=== PATIENT | male | born 1970 | race American Indian/Alaskan Native ===

== ENCOUNTER 2018-02-28 19:22 | Inpatient (IN) | payer OTHER ==
[2018-02-28 20:24] LABS: Basophils % (Auto) 0.4 % (0.0-1.8); Eosinophils # (Auto) 0.1 K/mm3 (0.0-0.4); Eosinophils % (Auto) 1.1 % (0.0-4.3); Lymphocytes # (Auto) 1.4 K/mm3 (1.2-5.4); Lymphocytes % (Auto) 14.8 % (13.4-35.0); Mean Corpuscular HGB Conc 31 % (32-34); Monocytes # (Auto) 0.8 K/mm3 (0.0-0.8); Monocytes % (Auto) 8.4 % (0.0-7.3); Platelet Count 600 K/mm3 (140-440); Red Blood Count 2.56 M/mm3 (3.65-5.03); Red Cell Distribution Width 18.7 % (13.2-15.2)
[2018-02-28 20:30] LABS: Hemoglobin 5.4 gm/dl (11.8-15.2)
[2018-02-28 20:31] LABS: Hematocrit 17.5 % (35.5-45.6); Mean Corpuscular Hemoglobin 21 pg (28-32); Mean Corpuscular Volume 68 fl (84-94)
[2018-02-28 20:36] LABS: BUN/Creatinine Ratio 16; Blood Urea Nitrogen 14 mg/dL (9-20); Calcium 8.8 mg/dL (8.4-10.2); Hemolysis Index 0
[2018-02-28] MEDS ORDERED: PROTONIX IV ONE (21:19)
[2018-02-28] MEDS ORDERED: NACL 0.9% 500 ML 500 ML IV ONE (21:19)
--- NOTE | 2018-02-28 21:25 | Emergency Department Report ---
ED Shortness of Breath HPI - General Chief Complaint: Dyspnea/Respdistress Stated Complaint: SHORTNESS OF BREATH Time Seen by Provider: 02/28/18 20:55 Source: patient, old records reviewed (no previous record available) Mode of arrival: Ambulatory Limitations: No Limitations - History of Present Illness Initial Comments: 47-year-old male with no past medical history of hypertension and previous appendectomy presents to hospital with complaints of shortness of breath 1 week. Positive dyspnea on exertion, tired and fatigued feeling. Patient also has had intermittent epigastric aching pain that worsens when he is hungry and improves after he eats. He has noticed that his stools have been dark in color. He denies cough, fever, Tenderness, or leg edema. 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 He denies aspirin use, NSAIDs, daily alcohol use, recent weight loss, smoking history, or weight loss. No chest pain reported. Patient went to [place] urgent [facility] prior to arrival and had a chest x-ray performed. Impression as per radiologist was right lower lobe pneumonia and a questionable left perihilar infiltrate. Patient denies any infectious symptoms. - Related Data Home Medications Medication Instructions Recorded Confirmed Last Taken amLODIPine [Norvasc] 10 mg PO DAILY 02/28/18 02/28/18 Unknown hydroCHLOROthiazide 12.5 mg PO DAILY 02/28/18 02/28/18 Unknown [Hydrochlorothiazide] Allergies Allergy/AdvReac Type Severity Reaction Status Date / Time No Known Allergies Allergy Unverified 02/28/18 19:45 ED Review of Systems ROS: Stated complaint: SHORTNESS OF BREATH Other details as noted in HPI Comment: All other systems reviewed and negative ED Past Medical Hx - Past Medical History Hx Hypertension: Yes - Surgical History Past Surgical History?: Yes Hx Appendectomy: Yes - Social History Smoking Status: Never Smoker Substance Use Type: None - Medications Home Medications: Home Medications Medication Instructions Recorded Confirmed Last Taken Type amLODIPine [Norvasc] 10 mg PO DAILY 02/28/18 02/28/18 Unknown History hydroCHLOROthiazide 12.5 mg PO DAILY 02/28/18 02/28/18 Unknown History [Hydrochlorothiazide] ED Physical Exam - General Limitations: No Limitations - Other Other exam information: General: No limitations, patient is alert in no acute distress Head exam: Atraumatic, normocephalic Eyes exam: Normal appearance, pale conjunctiva ENT: Moist mucous membrane, pale tongue Neck exam: Normal inspection, full range of motion, no meningismus nontender Respiratory exam: Crackles at the right base, no tachypnea or wheezing Cardiovascular: Normal rate and rhythm, positive systolic murmur Abdomen: Soft, nondistended, and nontender, with normal bowel sounds, no rebound, or guarding Rectal: Brown stool somewhat rating color guaiac positive Extremity: Full range of motion normal inspection no deformity Back: Normal Inspection, full range of motion, no tenderness Neurologic: Alert, oriented x3, cranial nerves intact, no motor or sensory deficit Psychiatric: normal affect, normal mood Skin: Warm, dry, intact ED Course Vital Signs 02/28/18 02/28/18 02/28/18 19:40 20:51 21:00 Temperature 98.6 F Pulse Rate 89 78 Respiratory 17 21 Rate Blood Pressure 152/74 O2 Sat by Pulse 99 97 100 Oximetry 02/28/18 02/28/18 02/28/18 21:16 21:30 22:00 Temperature Pulse Rate 94 H 80 83 Respiratory 16 28 H Rate Blood Pressure O2 Sat by Pulse 98 100 100 Oximetry 02/28/18 02/28/18 02/28/18 22:16 22:30 22:46 Temperature Pulse Rate 84 82 82 Respiratory 31 H 32 H 28 H Rate Blood Pressure 154/68 150/60 154/68 O2 Sat by Pulse 100 100 98 Oximetry 02/28/18 23:00 Temperature Pulse Rate 79 Respiratory 30 H Rate Blood Pressure 146/62 O2 Sat by Pulse 99 Oximetry - Reevaluation(s) Reevaluation #1: 02/28/18 21:30 Despite patient's x-ray findings suggestive of infiltrate patient does not have any infectious symptoms, leukocytosis, or fever. Blood cultures ordered the CT angiogram also further evaluation of chest to rule out pulmonary infarct or mass - Consultations Consultation #1: 02/28/18 23:08 case d/w GI dr bartlett, will consult ED Medical Decision Making - Lab Data Result diagrams: 02/28/18 20:10 02/28/18 20:10 Lab Results 02/28/18 02/28/18 02/28/18 Range/Units 20:10 20:10 21:26 WBC 9.7 (4.5-11.0) K/mm3 RBC 2.56 L (3.65-5.03) M/mm3 Hgb 5.4 L* (11.8-15.2) gm/dl Hct 17.5 L* (35.5-45.6) % MCV 68 L (84-94) fl MCH 21 L (28-32) pg MCHC 31 L (32-34) % RDW 18.7 H (13.2-15.2) % Plt Count 600 H (140-440) K/mm3 Lymph % (Auto) 14.8 (13.4-35.0) % [place] % (Auto) 8.4 H (0.0-7.3) % Eos % (Auto) 1.1 (0.0-4.3) % Baso % (Auto) 0.4 (0.0-1.8) % Lymph # 1.4 (1.2-5.4) K/mm3 [place] # 0.8 (0.0-0.8) K/mm3 Eos # 0.1 (0.0-0.4) K/mm3 Baso # 0.0 (0.0-0.1) K/mm3 Seg Neutrophils % 75.3 H (40.0-70.0) % Seg Neutrophils # 7.3 (1.8-7.7) K/mm3 PT 15.1 H (12.2-14.9) Sec. INR 1.14 H (0.87-1.13) APTT 31.3 (24.2-36.6) Sec. Sodium 137 (137-145) mmol/L Potassium 4.2 (3.6-5.0) mmol/L Chloride 99.1 (98-107) mmol/L Carbon Dioxide 27 (22-30) mmol/L Anion Gap 15 mmol/L BUN 14 (9-20) mg/dL Creatinine 0.9 (0.8-1.5) mg/dL Estimated GFR > 60 ml/min BUN/Creatinine Ratio 16 % Glucose 150 H (75-100) mg/dL Calcium 8.8 (8.4-10.2) mg/dL Iron (49-181) ug/dL TIBC (250-450) mcg/dL % Saturation % Transferrin (180-329) mg/dl Troponin T < 0.010 (0.00-0.029) ng/mL Blood Type Antibody Screen Crossmatch 02/28/18 02/28/18 Range/Units 21:26 21:33 WBC (4.5-11.0) K/mm3 RBC (3.65-5.03) M/mm3 Hgb (11.8-15.2) gm/dl Hct (35.5-45.6) % MCV (84-94) fl MCH (28-32) pg MCHC (32-34) % RDW (13.2-15.2) % Plt Count (140-440) K/mm3 Lymph % (Auto) (13.4-35.0) % [place] % (Auto) (0.0-7.3) % Eos % (Auto) (0.0-4.3) % Baso % (Auto) (0.0-1.8) % Lymph # (1.2-5.4) K/mm3 [place] # (0.0-0.8) K/mm3 Eos # (0.0-0.4) K/mm3 Baso # (0.0-0.1) K/mm3 Seg Neutrophils % (40.0-70.0) % Seg Neutrophils # (1.8-7.7) K/mm3 PT (12.2-14.9) Sec. INR (0.87-1.13) APTT (24.2-36.6) Sec. Sodium (137-145) mmol/L Potassium (3.6-5.0) mmol/L Chloride (98-107) mmol/L Carbon Dioxide (22-30) mmol/L Anion Gap mmol/L BUN (9-20) mg/dL Creatinine (0.8-1.5) mg/dL Estimated GFR ml/min BUN/Creatinine Ratio % Glucose (75-100) mg/dL Calcium (8.4-10.2) mg/dL Iron 7 L (49-181) ug/dL TIBC 284 (250-450) mcg/dL % Saturation 2.46 % Transferrin 241 (180-329) mg/dl Troponin T (0.00-0.029) ng/mL Blood Type O POSITIVE Antibody Screen Negative Crossmatch See Detail - EKG Data -: EKG Interpreted by Ct EKG shows normal: sinus rhythm, axis (qrs -4), QRS complexes (qrsd 105), ST-T waves (no stemi) Rate: normal (83) - EKG Data When compared to previous EKG there are: previous EKG unavailable - Radiology Data Radiology results: report reviewed FINAL REPORT EXAM: XR CHEST ROUTINE 2V HISTORY: Shortness of breath TECHNIQUE: Frontal and lateral chest x-ray. PRIORS: None. FINDINGS: Cardiac and mediastinal silhouette within normal limits. Lungs show patchy and partially confluent opacities in the right lower lobe. No other focal consolidation, apparent pleural effusion or pneumothorax. Bony thorax grossly unremarkable. IMPRESSION: 1. Right lower lobe atelectasis versus consolidation, which may represent acute inflammatory process. Clinical correlation and radiographic followup after 4-6 weeks advised to document resolution. 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 Multiplanar reformations. PRIORS: Chest x-ray of same date. FINDINGS: Chest: The main and bilateral proximal pulmonary arteries are normally opacified without endoluminal filling defects. Heterogeneous enhancement of peripheral pulmonary arteries limits their evaluation. Borderline cardiomegaly. No apparent aneurysm, pseudoaneurysm or aortic dissection. No significant lymph node enlargement or axillary adenopathy. Lungs show patchy and partially confluent opacities in the right lower lobe, with some air bronchograms. Small and ill-defined, pleuro-parenchymal opacity in the lateral lingula, with slight cavitation, may represent postinflammatory change or scarring. Juxtapleural, nodular density in the posterior aspect of left lower lobe superior segment measuring approximately 5 x 9 mm, nonspecific. No discrete parenchymal mass, pleural effusions or apparent pneumothorax. Calcifications noted in the bilateral kidneys measuring up to 8-9 mm in the right kidney. No significant hydronephrosis. Remainder of visualized upper abdomen grossly unremarkable. Degenerative change in the thoracic spine. IMPRESSION: 1. No evidence of large vessel or central pulmonary emboli. 2. Patchy right lower lobe consolidation, which may represent acute infectious or inflammatory process versus nonspecific postinflammatory change or pneumonitis of uncertain etiology or chronicity. Clinical correlation and followup to resolution suggested. 3. Juxtapleural nodular density in left lower lobe, indeterminate. For lung nodules greater than 8 mm in size, consider CT chest in 3 months, PET/CT or tissue sampling. (Based on Fleischner guidelines.) 4. Nonobstructing, bilateral renal calcifications. No significant hydronephrosis. - Medical Decision Making Dyspnea secondary to symptomatic anemia Patient received IV Protonix given intermittent epigastric pain with guaiac positive stools Also component of iron deficiency 2 units of PRBCs ordered GI consultation Right-sided pulmonary infiltrate Confirmed by CT angiogram without signs of pulmonary embolus Patient does not have infectious symptoms Blood cultures pending Treated with Rocephin and azithromycin Hospitalist Dr. Espinoza mcdonald for admission - Differential Diagnosis pneumonia, anemia, PUD, iron deficiency, cancer, PE Critical Care Time: No Critical care attestation.: If time is entered above; I have spent that time in minutes in the direct care of this critically ill patient, excluding procedure time. ED Disposition Clinical Impression: Symptomatic anemia, Iron deficiency anemia, Guaiac positive stools, Epigastric abdominal pain, Pulmonary infiltrate Disposition: OP ADMIT IP TO THIS HOSP Is pt being admited?: Yes Condition: Stable Time of Disposition: 22:51 (Dr Chino/hospitalist)
--- NOTE | 2018-02-28 21:29 | XRay Report ---
FINAL REPORT EXAM: XR CHEST ROUTINE 2V HISTORY: Shortness of breath TECHNIQUE: Frontal and lateral chest x-ray. PRIORS: None. FINDINGS: Cardiac and mediastinal silhouette within normal limits. Lungs show patchy and partially confluent opacities in the right lower lobe. No other focal consolidation, apparent pleural effusion or pneumothorax. Bony thorax grossly unremarkable. IMPRESSION: 1. Right lower lobe atelectasis versus consolidation, which may represent acute inflammatory process. Clinical correlation and radiographic followup after 4-6 weeks advised to document resolution.
[2018-02-28] MEDS ORDERED: ROCEPHIN/NS 1 GM/50 ML 1 GM/50 ML BAG IV ONE (21:52)
[2018-02-28] MEDS ORDERED: ZITHROMAX 500 MG in NACL 0.9% 250ML 250 ML IV ONE (21:52)
[2018-02-28 21:54] LABS: INR 1.14 (0.87-1.13)
[2018-02-28 21:55] LABS: Partial Thromboplastin Time 31.3 Sec. (24.2-36.6)
[2018-02-28 22:05] LABS: % Iron Saturation 2.46 %
--- NOTE | 2018-02-28 22:42 | Cat Scan Report ---
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 Multiplanar reformations. PRIORS: Chest x-ray of same date. FINDINGS: Chest: The main and bilateral proximal pulmonary arteries are normally opacified without endoluminal filling defects. Heterogeneous enhancement of peripheral pulmonary arteries limits their evaluation. Borderline cardiomegaly. No apparent aneurysm, pseudoaneurysm or aortic dissection. No significant lymph node enlargement or axillary adenopathy. Lungs show patchy and partially confluent opacities in the right lower lobe, with some air bronchograms. Small and ill-defined, pleuro-parenchymal opacity in the lateral lingula, with slight cavitation, may represent postinflammatory change or scarring. Juxtapleural, nodular density in the posterior aspect of left lower lobe superior segment measuring approximately 5 x 9 mm, nonspecific. No discrete parenchymal mass, pleural effusions or apparent pneumothorax. Calcifications noted in the bilateral kidneys measuring up to 8-9 mm in the right kidney. No significant hydronephrosis. Remainder of visualized upper abdomen grossly unremarkable. Degenerative change in the thoracic spine. IMPRESSION: 1. No evidence of large vessel or central pulmonary emboli. 2. Patchy right lower lobe consolidation, which may represent acute infectious or inflammatory process versus nonspecific postinflammatory change or pneumonitis of uncertain etiology or chronicity. Clinical correlation and followup to resolution suggested. 3. Juxtapleural nodular density in left lower lobe, indeterminate. For lung nodules greater than 8 mm in size, consider CT chest in 3 months, PET/CT or tissue sampling. (Based on Fleischner guidelines.) 4. Nonobstructing, bilateral renal calcifications. No significant hydronephrosis.
[2018-02-28] MEDS ORDERED: NACL 0.9% 500 ML 500 ML ONE (23:41)
[2018-02-28] MEDS ORDERED: NACL 0.9% 1000 ML 1,000 ML IV SCH (23:45)
[2018-02-28] MEDS ORDERED: TYLENOL PO PRN (23:59)
[2018-02-28] MEDS ORDERED: SODIUM CHLORIDE FLUSH SYRINGE 10 ML IV PRN (23:59)
[2018-02-28] MEDS ORDERED: MORPHINE IV PRN (23:59)
[2018-02-28] MEDS ORDERED: ZOFRAN IV PRN (23:59)
--- NOTE | 2018-03-01 00:33 | History and Physical Report ---
History of Present Illness Date of examination: 02/28/18 Date of admission: 02/28/18 Chief complaint: Shortness of breath History of present illness: Patient is a 47-year-old -[place] male with history of hypertension who presented to the ED on account of 1 week history of shortness of breath with mild exertion. He has associated generalized weakness, palpitation and dizziness. He also complained of epigastric pain with passage of dark stool. Patient denies chest pain, fever, chills, cough, headaches, leg swelling, orthopnea, PND, nausea, vomiting, syncope or loss of consciousness. No constipation, diarrhea, dysuria or frequency. He denies chronic use of NSAIDS or prior history of presenting complaint. In the ED, his hemoglobin was noted to be very low at 5.4 Past History Past Medical History: hypertension, other (chronic low back pain) Past Surgical History: appendectomy Social history: other (he admits to occasional alcohol use but denies tobacco or illicit drug use) Family history: hypertension Medications and Allergies Allergies Allergy/AdvReac Type Severity Reaction Status Date / Time No Known Allergies Allergy Unverified 02/28/18 19:45 Home Medications Medication Instructions Recorded Confirmed Last Taken Type amLODIPine [Norvasc] 10 mg PO DAILY 02/28/18 02/28/18 Unknown History hydroCHLOROthiazide 12.5 mg PO DAILY 02/28/18 02/28/18 Unknown History [Hydrochlorothiazide] Active Meds: Active Medications Acetaminophen (Tylenol) 650 mg PO Q4H PRN PRN Reason: Pain MILD(1-3)/Fever >100.5/[place] Levofloxacin/Dextrose (Levaquin 750mg/150ml) 750 mg in 150 mls @ 100 mls/hr IV Q24HR HAILY; Protocol Sodium Chloride (Nacl 0.9% 1000 Ml) 1,000 mls @ 100 mls/hr IV DIRECT HAILY Pantoprazole Sodium 80 mg/ (Sodium Chloride) 100 mls @ 10 mls/hr IV DIRECT HAILY Morphine Sulfate (Morphine) 2 mg IV Q4H PRN PRN Reason: Pain, Moderate (4-6) Ondansetron HCl (Zofran) 4 mg IV Q8H PRN PRN Reason: Nausea And Vomiting Sodium Chloride (Sodium Chloride Flush Syringe 10 Ml) 10 ml IV BID HAILY Sodium Chloride (Sodium Chloride Flush Syringe 10 Ml) 10 ml IV PRN PRN PRN Reason: LINE FLUSH Review of Systems All systems: negative (except as documented in the HPI, all other systems were reviewed and negative) Exam - Constitutional Vitals: Temp Pulse Resp BP Pulse Ox 99.7 F H 83 33 H 155/61 98 03/01/18 00:03 03/01/18 00:15 03/01/18 00:15 03/01/18 00:15 03/01/18 00:15 General appearance: Present: no acute distress - EENT Eyes: Present: PERRL, EOM intact ENT: hearing intact, clear oral mucosa - Neck Neck: Present: supple, normal ROM - Respiratory Respiratory effort: normal Respiratory: bilateral: diminished, rales - Cardiovascular Rhythm: regular Heart Sounds: Present: S1 & S2. Absent: rub, click - Extremities Extremities: pulses symmetrical, No edema - Abdominal General gastrointestinal: Present: soft, tender (epigastric), non-distended, normal bowel sounds - Integumentary Integumentary: Present: clear, warm, dry - Musculoskeletal Musculoskeletal: gait normal, strength equal bilaterally - Psychiatric Psychiatric: appropriate mood/affect, intact judgment & insight - Neurologic Neurologic: CNII-XII intact, moves all extremities Results - Labs CBC & Chem 7: 02/28/18 20:10 02/28/18 20:10 Labs: Laboratory Last Values WBC 9.7 K/mm3 (4.5-11.0) 02/28/18 20:10 RBC 2.56 M/mm3 (3.65-5.03) L 02/28/18 20:10 Hgb 5.4 gm/dl (11.8-15.2) L* 02/28/18 20:10 Hct 17.5 % (35.5-45.6) L* 02/28/18 20:10 MCV 68 fl (84-94) L 02/28/18 20:10 MCH 21 pg (28-32) L 02/28/18 20:10 MCHC 31 % (32-34) L 02/28/18 20:10 RDW 18.7 % (13.2-15.2) H 02/28/18 20:10 Plt Count 600 K/mm3 (140-440) H 02/28/18 20:10 Lymph % (Auto) 14.8 % (13.4-35.0) 02/28/18 20:10 [place] % (Auto) 8.4 % (0.0-7.3) H 02/28/18 20:10 Eos % (Auto) 1.1 % (0.0-4.3) 02/28/18 20:10 Baso % (Auto) 0.4 % (0.0-1.8) 02/28/18 20:10 Lymph # 1.4 K/mm3 (1.2-5.4) 02/28/18 20:10 [place] # 0.8 K/mm3 (0.0-0.8) 02/28/18 20:10 Eos # 0.1 K/mm3 (0.0-0.4) 02/28/18 20:10 Baso # 0.0 K/mm3 (0.0-0.1) 02/28/18 20:10 Seg Neutrophils % 75.3 % (40.0-70.0) H 02/28/18 20:10 Seg Neutrophils # 7.3 K/mm3 (1.8-7.7) 02/28/18 20:10 PT 15.1 Sec. (12.2-14.9) H 02/28/18 21:26 INR 1.14 (0.87-1.13) H 02/28/18 21:26 APTT 31.3 Sec. (24.2-36.6) 02/28/18 21:26 Sodium 137 mmol/L (137-145) 02/28/18 20:10 Potassium 4.2 mmol/L (3.6-5.0) 02/28/18 20:10 Chloride 99.1 mmol/L (98-107) 02/28/18 20:10 Carbon Dioxide 27 mmol/L (22-30) 02/28/18 20:10 Anion Gap 15 mmol/L 02/28/18 20:10 BUN 14 mg/dL (9-20) 02/28/18 20:10 Creatinine 0.9 mg/dL (0.8-1.5) 02/28/18 20:10 Estimated GFR > 60 ml/min 02/28/18 20:10 BUN/Creatinine Ratio 16 % 02/28/18 20:10 Glucose 150 mg/dL (75-100) H 02/28/18 20:10 Calcium 8.8 mg/dL (8.4-10.2) 02/28/18 20:10 Iron 7 ug/dL (49-181) L 02/28/18 21:26 TIBC 284 mcg/dL (250-450) 02/28/18 21:26 % Saturation 2.46 % 02/28/18 21:26 Transferrin 241 mg/dl (180-329) 02/28/18 21:26 Troponin T < 0.010 ng/mL (0.00-0.029) 02/28/18 20:10 Blood Type O POSITIVE 02/28/18 21:33 Antibody Screen Negative 02/28/18 21:33 Crossmatch See Detail 02/28/18 21:33 - Imaging and Cardiology Chest x-ray: report reviewed CT scan - chest: report reviewed Assessment and Plan Assessment and plan: Upper GI bleed -will transfuse pt with 2u of PRBCS and monitor post transfusion H&H -Patient will be placed on Protonix drip -GI was consulted in the ED Pneumonia -CTA chest showed patchy right lower lobe consolidation -Patient will be continued on IV antibiotic with levofloxacin -Blood cultures were obtained in the ED, will follow results New left lower lobe lung nodule measuring approximately 59 mm per chest imaging -For outpatient follow-up with chest CT scan in 3 months per recommendation Hypertension, stable -We will resume his home antihypertensives -Patient will also be placed on PRN IV hydralazine Hyperglycemia -We will check hemoglobin A1c level Obesity with BMI of 36 -Weight loss recommended Prophylaxis -DVT prophylaxis with SCD and GI prophylaxis with Protonix Time spent: 35 minutes Disposition: Discharge will depend on clinical course
[2018-03-01] MEDS ORDERED: PROTONIX 80 MG in NACL 0.9% 100 ML IV SCH (01:00)
[2018-03-01 06:39] LABS: Iron 15 ug/dL (49-181)
[2018-03-01 06:40] LABS: Total Iron Binding Capacity 262 mcg/dL (250-450)
--- NOTE | 2018-03-01 07:00 | Progress Note ---
Assessment and Plan Assessment and plan: 47-year-old male with past medical history significant for hypertension, obesity presented to the emergency department with complaints of shortness of breath on exertion. Patient also complaining vomiting of coffee-ground material. In the ED hemoglobin was 5.4. Symptomatic anemia secondary to upper GI bleed - Transfused 2 units of blood, will check H&H -Patient is on IV Protonix drip -GI consulted Hypertension -Controlled -We will start with antihypertensives as needed Right lower lobe infiltrate -Patient is on IV Levaquin for possible pneumonia Left lower lobe nodules -Need outpatient follow-up CT within 3 months Obesity -Patient to be counseled about weight loss, diet and exercise Hyperglycemia -Hemoglobin A1c is pending -If diabetic we will cover with insulin DVT prophylaxis -On SCDs because of GI bleed History Interval history: Patient was seen and evaluated, shortness of breath is getting better. Hospitalist Physical - Physical exam Narrative exam: Not in cardiopulmonary distress. The patient is obese. Vital signs as documented. Head exam is unremarkable. No scleral icterus . Neck is without jugular venous distension, thyromegaly, or carotid bruits. Lungs are clear to auscultation. Cardiac exam reveals regular rate and Rhythm. First and second heart sounds normal. No murmurs, rubs or gallops. Abdominal exam reveals normal bowel sounds, no masses, no organomegaly and no aortic enlargement. Extremities are nonedematous and both femoral and pedal pulses are normal. [employer]: Alert and oriented 3. No focal weakness. - Constitutional Vitals: Temp Pulse Resp BP Pulse Ox 99.2 F 90 16 139/52 97 03/01/18 05:41 03/01/18 05:42 03/01/18 05:42 03/01/18 05:41 03/01/18 01:00 General appearance: Present: no acute distress Results - Labs CBC & Chem 7: 02/28/18 20:10 02/28/18 20:10 Labs: Laboratory Last Values WBC 9.7 K/mm3 (4.5-11.0) 02/28/18 20:10 RBC 2.56 M/mm3 (3.65-5.03) L 02/28/18 20:10 Hgb 5.4 gm/dl (11.8-15.2) L* 02/28/18 20:10 Hct 17.5 % (35.5-45.6) L* 02/28/18 20:10 MCV 68 fl (84-94) L 02/28/18 20:10 MCH 21 pg (28-32) L 02/28/18 20:10 MCHC 31 % (32-34) L 02/28/18 20:10 RDW 18.7 % (13.2-15.2) H 02/28/18 20:10 Plt Count 600 K/mm3 (140-440) H 02/28/18 20:10 Lymph % (Auto) 14.8 % (13.4-35.0) 02/28/18 20:10 [place] % (Auto) 8.4 % (0.0-7.3) H 02/28/18 20:10 Eos % (Auto) 1.1 % (0.0-4.3) 02/28/18 20:10 Baso % (Auto) 0.4 % (0.0-1.8) 02/28/18 20:10 Lymph # 1.4 K/mm3 (1.2-5.4) 02/28/18 20:10 [place] # 0.8 K/mm3 (0.0-0.8) 02/28/18 20:10 Eos # 0.1 K/mm3 (0.0-0.4) 02/28/18 20:10 Baso # 0.0 K/mm3 (0.0-0.1) 02/28/18 20:10 Seg Neutrophils % 75.3 % (40.0-70.0) H 02/28/18 20:10 Seg Neutrophils # 7.3 K/mm3 (1.8-7.7) 02/28/18 20:10 PT 15.1 Sec. (12.2-14.9) H 02/28/18 21:26 INR 1.14 (0.87-1.13) H 02/28/18 21:26 APTT 31.3 Sec. (24.2-36.6) 02/28/18 21:26 Sodium 137 mmol/L (137-145) 02/28/18 20:10 Potassium 4.2 mmol/L (3.6-5.0) 02/28/18 20:10 Chloride 99.1 mmol/L (98-107) 02/28/18 20:10 Carbon Dioxide 27 mmol/L (22-30) 02/28/18 20:10 Anion Gap 15 mmol/L 02/28/18 20:10 BUN 14 mg/dL (9-20) 02/28/18 20:10 Creatinine 0.9 mg/dL (0.8-1.5) 02/28/18 20:10 Estimated GFR > 60 ml/min 02/28/18 20:10 BUN/Creatinine Ratio 16 % 02/28/18 20:10 Glucose 150 mg/dL (75-100) H 02/28/18 20:10 Calcium 8.8 mg/dL (8.4-10.2) 02/28/18 20:10 Iron 15 ug/dL (49-181) L 03/01/18 05:51 TIBC 262 mcg/dL (250-450) 03/01/18 05:51 % Saturation 2.46 % 02/28/18 21:26 Transferrin 241 mg/dl (180-329) 02/28/18 21:26 Ferritin 12.5 ng/mL (13.0-400.0) L 03/01/18 05:51 Troponin T < 0.010 ng/mL (0.00-0.029) 02/28/18 20:10 Blood Type O POSITIVE 02/28/18 21:33 Antibody Screen Negative 02/28/18 21:33 Crossmatch See Detail 02/28/18 21:33
[2018-03-01] MEDS ORDERED: NON-FORMULARY (Hydrochlorothiazide [Hydrochlorothiazide] 12.5 MG) PO SCH (10:00)
[2018-03-01] MEDS ORDERED: DIPRIVAN 10 MG/ML IV ONE ×2 (10:05→10:36)
[2018-03-01] MEDS ORDERED: WATER FOR IRRIG STERILE IR ONE (10:13)
--- NOTE | 2018-03-01 10:15 | Gastroenterology Consultation ---
History of Present Illness - Reason for Consult Consult date: 03/01/18 Anemia Requesting physician: ELOY GUERRERO - History of Present Illness The patient is a 47 yo male with no prior GI hx. He came to the ER for fatigue , and was noted to be profoundly anemic. He has no N/V/abdominal pain, but does admit to dark stools recently. He has no CP but did have ADAIR. He denies a hx of PUD, or epigastric pain, but does have a mild "hollowness" feeling in the stomach that is better with eating. He does drink EtOH, but has no hx of liver disease, and no tobacco or NSAID abuse. There is no family hx of GI bleeding. He has had no upper or lower endoscopy. Past History Past Medical History: hypertension, other (chronic low back pain) Past Surgical History: appendectomy Social history: other (he admits to occasional alcohol use but denies tobacco or illicit drug use) Family history: hypertension Medications and Allergies Allergies Allergy/AdvReac Type Severity Reaction Status Date / Time No Known Allergies Allergy Unverified 02/28/18 19:45 Home Medications Medication Instructions Recorded Confirmed Last Taken Type amLODIPine [Norvasc] 10 mg PO DAILY 02/28/18 02/28/18 Unknown History hydroCHLOROthiazide 12.5 mg PO DAILY 02/28/18 02/28/18 Unknown History [Hydrochlorothiazide] Active Meds: Active Medications Acetaminophen (Tylenol) 650 mg PO Q4H PRN PRN Reason: Pain MILD(1-3)/Fever >100.5/[place] Amlodipine Besylate (Norvasc) 10 mg PO DAILY [facility] Hydralazine HCl (Apresoline) 10 mg IV Q6H PRN PRN Reason: Blood Pressure Hydrochlorothiazide (Hctz) 12.5 mg PO QDAY [facility] Levofloxacin/Dextrose (Levaquin 750mg/150ml) 750 mg in 150 mls @ 100 mls/hr IV Q24HR [facility]; Protocol Sodium Chloride (Nacl 0.9% 1000 Ml) 1,000 mls @ 100 mls/hr IV DIRECT [facility] Last Admin: 03/01/18 04:50 Dose: 100 mls/hr Pantoprazole Sodium 80 mg/ (Sodium Chloride) 100 mls @ 10 mls/hr IV DIRECT [facility] Last Admin: 03/01/18 03:28 Dose: 8 mg/hr, 10 mls/hr Morphine Sulfate (Morphine) 2 mg IV Q4H PRN PRN Reason: Pain, Moderate (4-6) Ondansetron HCl (Zofran) 4 mg IV Q8H PRN PRN Reason: Nausea And Vomiting Sodium Chloride (Sodium Chloride Flush Syringe 10 Ml) 10 ml IV BID [facility] Sodium Chloride (Sodium Chloride Flush Syringe 10 Ml) 10 ml IV PRN PRN PRN Reason: LINE FLUSH I HAVE REVIEWED AND RECONCILED MEDICATIONS. Review of Systems - Review of Systems All systems: negative (as noted in the HPI.) Exam - Constitutional Vital Signs: Temp Pulse Resp BP Pulse Ox 98.4 F 76 20 147/66 98 03/01/18 06:09 03/01/18 06:03/01/18 06:03/01/18 06:03/01/18 06:09 General appearance: no acute distress - EENT Eyes: PERRL, EOM intact - Neck Neck: supple, normal ROM - Respiratory Respiratory effort: normal Respiratory: bilateral: CTA - Cardiovascular Rhythm: regular Heart Sounds: Present: S1 & S2 Extremities: no ischemia, No edema - Gastrointestinal General gastrointestinal: Present: soft, non-tender, non-distended - Integumentary Integumentary: Present: clear, warm, dry - Neurologic Neurological: alert and oriented x3 - Labs CBC & Chem 7: 02/28/18 20:10 02/28/18 20:10 Lab Results: Laboratory Results - last 24 hr 02/28/18 02/28/18 02/28/18 20:10 20:10 21:26 WBC 9.7 RBC 2.56 L Hgb 5.4 L* Hct 17.5 L* MCV 68 L MCH 21 L MCHC 31 L RDW 18.7 H Plt Count 600 H Lymph % (Auto) 14.8 [place] % (Auto) 8.4 H Eos % (Auto) 1.1 Baso % (Auto) 0.4 Lymph # 1.4 [place] # 0.8 Eos # 0.1 Baso # 0.0 Seg Neutrophils % 75.3 H Seg Neutrophils # 7.3 PT 15.1 H INR 1.14 H APTT 31.3 Sodium 137 Potassium 4.2 Chloride 99.1 Carbon Dioxide 27 Anion Gap 15 BUN 14 Creatinine 0.9 Estimated GFR > 60 BUN/Creatinine Ratio 16 Glucose 150 H Hemoglobin A1c Calcium 8.8 Iron TIBC % Saturation Transferrin Ferritin Troponin T < 0.010 Vitamin B12 Folate Blood Type Antibody Screen Crossmatch 02/28/18 02/28/18 03/01/18 21:26 21:33 05:51 WBC RBC Hgb Hct MCV MCH MCHC RDW Plt Count Lymph % (Auto) [place] % (Auto) Eos % (Auto) Baso % (Auto) Lymph # [place] # Eos # Baso # Seg Neutrophils % Seg Neutrophils # PT INR APTT Sodium Potassium Chloride Carbon Dioxide Anion Gap BUN Creatinine Estimated GFR BUN/Creatinine Ratio Glucose Hemoglobin A1c 7.0 H Calcium Iron 7 L TIBC 284 % Saturation 2.46 Transferrin 241 Ferritin Troponin T Vitamin B12 Folate Blood Type O POSITIVE Antibody Screen Negative Crossmatch See Detail 03/01/18 03/01/18 03/01/18 05:51 05:51 05:51 WBC RBC Hgb Hct MCV MCH MCHC RDW Plt Count Lymph % (Auto) [place] % (Auto) Eos % (Auto) Baso % (Auto) Lymph # [place] # Eos # Baso # Seg Neutrophils % Seg Neutrophils # PT INR APTT Sodium Potassium Chloride Carbon Dioxide Anion Gap BUN Creatinine Estimated GFR BUN/Creatinine Ratio Glucose Hemoglobin A1c Calcium Iron 15 L TIBC 262 % Saturation Transferrin Ferritin 12.5 L Troponin T Vitamin B12 319.2 Folate Blood Type Antibody Screen Crossmatch 03/01/18 05:51 WBC RBC Hgb Hct MCV MCH MCHC RDW Plt Count Lymph % (Auto) [place] % (Auto) Eos % (Auto) Baso % (Auto) Lymph # [place] # Eos # Baso # Seg Neutrophils % Seg Neutrophils # PT INR APTT Sodium Potassium Chloride Carbon Dioxide Anion Gap BUN Creatinine Estimated GFR BUN/Creatinine Ratio Glucose Hemoglobin A1c Calcium Iron TIBC % Saturation Transferrin Ferritin Troponin T Vitamin B12 Folate 8.64 Blood Type Antibody Screen Crossmatch Assessment and Plan - Patient Problems (1) Acute blood loss anemia Current Visit: Yes Status: Acute Plan to address problem: - Likely PUD, but given hx of EtOH, occult varices possible. - Will check post-transfusion CBC. - EGD today to further evaluate. - Colonoscopy if no lesion seen on EGD.
[2018-03-01] MEDS: LEVAQUIN 750MG/150ML 750 MG/150 ML BAG IV SCH (10:16)
[2018-03-01 10:29] LABS: Basophils # (Auto) 0.1 K/mm3 (0.0-0.1); Basophils % (Auto) 0.7 % (0.0-1.8); Eosinophils # (Auto) 0.1 K/mm3 (0.0-0.4); Eosinophils % (Auto) 1.6 % (0.0-4.3); Hemoglobin 6.6 gm/dl (11.8-15.2); Lymphocytes # (Auto) 1.3 K/mm3 (1.2-5.4); Lymphocytes % (Auto) 13.2 % (13.4-35.0); Mean Corpuscular HGB Conc 31 % (32-34); Mean Corpuscular Volume 72 fl (84-94); Monocytes # (Auto) 0.7 K/mm3 (0.0-0.8); Monocytes % (Auto) 7.8 % (0.0-7.3); Platelet Count 576 K/mm3 (140-440); Red Blood Count 2.93 M/mm3 (3.65-5.03)
--- NOTE | 2018-03-01 10:32 | Anesthesia Consultation ---
Anesthesia Consult and Med Hx Date of service: 03/01/18 - Airway Anesthetic Teeth Evaluation: Good ROM Head & Neck: Adequate Mental/Hyoid Distance: Adequate Mallampati Class: Class III Intubation Access Assessment: Possibly Difficult - Pulmonary Exam CTA: Yes - Cardiac Exam Cardiac Exam: RRR - Pre-Operative Health Status ASA Pre-Surgery Classification: ASA3 Proposed Anesthetic Plan: MAC - Pulmonary Hx Smoking: No Hx Asthma: No SOB: Yes (on admission possibly 2/2 anemia; resolved) COPD: No - Cardiovascular System Hx Hypertension: Yes Hx Heart Attack/AMI: No - Central Nervous System Hx Seizures: No CVA: No - Endocrine Hx Renal Disease: No Hx Liver Disease: No Hx Insulin Dependent Diabetes: No Hx Thyroid Disease: No - Hematic Hx Anemia: Yes (Hb 5.4 on admission now s/p 2 units pRBCs. Repeat H/H pending.) - Other Systems Hx Obesity: Yes
--- NOTE | 2018-03-01 10:32 | Anesthesia Day of Surgery ---
Anesthesia Day of Surgery - Day of Surgery Patient Examined: Yes Patient H&P Reviewed: Yes Patient is NPO: Yes
[2018-03-01 10:41] LABS: Mean Corpuscular Hemoglobin 22 pg (28-32); Red Cell Distribution Width 21.7 % (13.2-15.2)
--- NOTE | 2018-03-01 11:01 | Post Operative Note ---
Pre-op diagnosis: Anemia Post-op diagnosis: other (Gastric ulceration/mass) Findings: 1. Normal duodenum 2. 6mm pedunculated polyp in antrum (likely inflammatory); cold bx taken 3. Confluent ulcerated mucosa with heaped-up margins on greater curve at junction of body and antrum; cold bx 4. Normal esophagus Procedure: EGD with cold bx Anesthesia: MAC Surgeon: BETINA JOSEPH Estimated blood loss: none Pathology: list (1. Gastric antrum polyp. 2. Gastric body mass/ulcers.) Specimen disposition: to lab Condition: stable Disposition: floor (Recs: 1. CT of A/P. 2. Continue protonix but convert to PO. 3. Daily MVI/avoid NSAIDs. 4. I will put in surgical consult (already called) in case this is gastric mass lesion. 5. Transfuse as needed.)
--- NOTE | 2018-03-01 11:30 | Operative Report ---
PROCEDURE PERFORMED: Esophagogastroduodenoscopy with cold biopsy. PREOPERATIVE DIAGNOSIS: Melena/anemia. POSTOPERATIVE DIAGNOSES: Gastric ulceration, possible gastric mass. ENDOSCOPIST: Man Mcclure MD INSTRUMENT: Kadient video endoscope. MEDICATIONS: MAC anesthesia by [facility]. COMPLICATIONS: No apparent complications. ESTIMATED BLOOD LOSS: Minimal. SPECIMENS: 1. Gastric antrum polyp. 2. Gastric body ulceration. IMPLANTS: None. ASSISTANTS: None. CONDITION AT COMPLETION: Stable. TECHNIQUE: The patient was informed of the risks and benefits of the procedure. He signed the informed consent to proceed. He was placed in left lateral decubitus position. The above sedative medications were given. His vital signs remained stable throughout the procedure. The instrument was advanced from the mouth to the second portion of the duodenum under direct visualization. At that point, the bowel was insufflated and the endoscope was slowly withdrawn. FINDINGS: 1. Normal duodenum. 2. A 6 mm pedunculated polyp in the antrum, likely inflammatory; multiple cold biopsies were taken. 3. Confluent 4 cm ulcerated area of the mucosa on the greater curve at the junction of the body and the antrum of the stomach; there were heaped up margins and there will be a high suspicion for underlying malignancy; multiple cold biopsies were taken. 4. Normal esophagus. RECOMMENDATIONS: 1. CT scan of the abdomen and pelvis. 2. Continue Protonix, but convert to oral therapy. 3. Daily multivitamin and avoid nonsteroidal anti-inflammatory drugs. 4. Surgical consult has been placed in case if this is a gastric adenocarcinoma. 5. Transfuse as needed. JOB# [id number]
[2018-03-01] MEDS: HCTZ PO SCH (12:43)
[2018-03-01] MEDS: NORVASC PO SCH (12:43)
[2018-03-01] MEDS: THERAGRAN-M Tab PO SCH (12:43)
[2018-03-01] MEDS: APRESOLINE IV PRN ×2 (12:44→23:16)
[2018-03-01] MEDS: SODIUM CHLORIDE FLUSH SYRINGE 10 ML IV SCH ×2 (12:44→22:00)
[2018-03-01] MEDS ORDERED: NACL 0.9% 500 ML 500 ML IV NR (13:20)
--- NOTE | 2018-03-01 13:33 | Cat Scan Report ---
FINAL REPORT EXAM: CT ABDOMEN PELVIS W CON HISTORY: gastric mass (junction body/antrum) THE THE TECHNIQUE: CT examination of the ABDOMEN after IV contrast CT examination of the PELVIS after IV contrast PRIORS: Chest CT 02/28/2018 FINDINGS: Two areas of masslike consolidation are again noted in the right lower lobe posteriorly with largest lesion in lateral location measuring approximately 6.7 x 7.5 cm. Smaller lesion is more medially located in the azygoesophageal recess region measuring approximately 4.5 x 4.7 cm. These may be granulomatous, infectious, or inflammatory. They do raise suspicion for neoplasm, primary and/or metastatic. Slight cardiomegaly without pericardial effusion. Normal-appearing liver, gallbladder, adrenals, pancreas, and spleen. Intact normal caliber abdominal aorta and IVC. 2 mm, 4 mm, and 10 mm nonobstructing right renal calculi. No right hydronephrosis. No right ureteral calculus or distention. 1 mm and 2 mm nonobstructing left renal calculi. No left hydronephrosis. No left ureteral calculus or distention. Very small fat containing umbilical hernia. No definite inguinal hernia. No retroperitoneal mass or adenopathy. No evidence of mesenteric mass. There is nonspecific nodular mural thickening in the gastric antrum. There appears to be a nonspecific polypoid lesion arising thumb posterior stomach at the junction between the body and antrum measuring approximately 2 cm. It is partly outlined by oral contrast in the stomach lumen. Normal-appearing duodenum. No small bowel distention in the abdomen and pelvis. No pelvic free fluid. Normal-appearing urinary bladder, prostate, seminal vesicles, and rectum. No focal sigmoid colon abnormality. No gross ascites or free air. Appendix not visualized. No pericecal inflammation. Nonspecific prominence of gas and caliber throughout the colon and rectum may reflect paralytic ileus. Slight diverticulosis mid descending colon. In this region, there is slight mural thickening and adjacent fat stranding suggesting mild diverticulitis. IMPRESSION: Two areas of masslike consolidation in the right lower lobe may be granulomatous, infectious, or inflammatory. Suspicion is raised of neoplasm, primary and/or metastatic Nonspecific nodular mural thickening in the gastric antrum may be edema, inflammation, gastritis, or neoplastic infiltration. Suggestion of 2 cm polypoid lesion in this region as well Suggestion of mild diverticulitis mid descending colon Slight cardiomegaly Bilateral nonobstructing renal calculi Nonspecific prominence of gas and caliber throughout the colon and rectum may reflect paralytic ileus.
[2018-03-01] MEDS ORDERED: NACL 0.9% 1000 ML 1,000 ML ONE (14:13)
[2018-03-01] MEDS: PROTONIX PO SCH (23:16)
[2018-03-02] MEDS: APRESOLINE IV PRN (07:04)
[2018-03-02 07:28] LABS: Basophils # (Auto) 0.1 K/mm3 (0.0-0.1); Basophils % (Auto) 0.5 % (0.0-1.8); Eosinophils # (Auto) 0.2 K/mm3 (0.0-0.4); Eosinophils % (Auto) 1.6 % (0.0-4.3); Hematocrit 28.4 % (35.5-45.6); Hemoglobin 9.1 gm/dl (11.8-15.2); Lymphocytes # (Auto) 1.3 K/mm3 (1.2-5.4); Lymphocytes % (Auto) 11.9 % (13.4-35.0); Mean Corpuscular HGB Conc 32 % (32-34); Mean Corpuscular Volume 74 fl (84-94); Monocytes # (Auto) 0.7 K/mm3 (0.0-0.8); Monocytes % (Auto) 7.1 % (0.0-7.3); Platelet Count 570 K/mm3 (140-440); Red Blood Count 3.85 M/mm3 (3.65-5.03)
[2018-03-02 07:36] LABS: Alanine Aminotransferase 7 units/L (7-56); Albumin 3.5 g/dL (3.9-5); BUN/Creatinine Ratio 11; Blood Urea Nitrogen 8 mg/dL (9-20); Calcium 8.7 mg/dL (8.4-10.2); Hemolysis Index 0
[2018-03-02 07:48] LABS: Mean Corpuscular Hemoglobin 24 pg (28-32); Red Cell Distribution Width 23.8 % (13.2-15.2)
[2018-03-02] MEDS: LEVAQUIN 750MG/150ML 750 MG/150 ML BAG IV SCH (09:12)
[2018-03-02] MEDS: THERAGRAN-M Tab PO SCH (09:16)
[2018-03-02] MEDS: NORVASC PO SCH (09:16)
[2018-03-02] MEDS: SODIUM CHLORIDE FLUSH SYRINGE 10 ML IV SCH ×2 (09:16→23:32)
[2018-03-02] MEDS: PROTONIX PO SCH ×2 (09:16→23:32)
[2018-03-02] MEDS: HCTZ PO SCH (09:16)
--- NOTE | 2018-03-02 11:03 | Cat Scan Report ---
FINAL REPORT EXAM: CT CHEST WO CON HISTORY: lung mass TECHNIQUE: A CT of the chest was performed from thoracic inlet to diaphragm. No IV or oral contrast material administered. Axial images and coronal and sagittal reformatted images were obtained. PRIORS: 02/28/2018 FINDINGS: There is no significant mediastinal or hilar mass seen. There are no pleural effusions seen. Again seen are masslike areas of consolidation in the right lower lobe, the larger measuring about 7.2 x 7.0 cm, not changed significantly from the prior. The other warm medially measures 4.7 x 4.8 cm, not significantly changed. While these could represent masslike areas of infiltrate, malignancy cannot be excluded. Left upper lobe nonspecific parenchymal density remains unchanged this may be a focal area of pneumonitis and/or scarring. There is no pneumothorax seen. There are no pleural effusions seen. IMPRESSION: There are stable large masslike areas of consolidation in the right lower lobe which have a nonspecific appearance. Again, these could be infectious, inflammatory or neoplastic. There is an additional nonspecific area of pneumonitis and/or scarring in the left upper lobe which is stable.
--- NOTE | 2018-03-02 11:44 | Gastroenterology Progress Note ---
Assessment and Plan - Patient Problems (1) Lesion of lung Current Visit: Yes Status: Acute Plan to address problem: - Consult for Pulmonary placed. (2) Gastric lesion Current Visit: Yes Status: Acute Plan to address problem: - Severe ulcer, bx taken to r/o mass lesion (see CT scan report - no evidence of mets if is a gastric cancer; may be acute severe inflammatory process). - Will f/u pathology, and Pulmonary workup. (3) Iron deficiency anemia Current Visit: Yes Status: Acute Plan to address problem: - See Gastric Lesion. Patient will need colonoscopy, but hct markedly better on MVI with PPI; doubt colonic source given gastric lesion. Subjective Date of service: 03/02/18 Principal diagnosis: Gastric lesion Interval history: The patient feels much better, and says his stool last night was less dark. He has no N/V/abdominal pain. Objective - Constitutional Vitals: Temp Pulse Resp BP Pulse Ox 99.0 F 71 20 178/84 99 03/02/18 04:27 03/02/18 07:04 03/02/18 04:27 03/02/18 07:04 03/02/18 04:27 General appearance: no acute distress - Respiratory Respiratory effort: normal Respiratory: bilateral: CTA - Cardiovascular Rhythm: regular Heart Sounds: Present: S1 & S2 - Gastrointestinal General gastrointestinal: Present: soft, non-tender, non-distended - Labs CBC & Chem 7: 03/02/18 06:37 03/02/18 06:37 Labs: Laboratory Results - last 24 hr 02/28/18 03/02/18 03/02/18 21:33 06:37 06:37 WBC 10.6 RBC 3.85 Hgb 9.1 L Hct 28.4 L D MCV 74 L MCH 24 L MCHC 32 RDW 23.8 H Plt Count 570 H Lymph % (Auto) 11.9 L [place] % (Auto) 7.1 Eos % (Auto) 1.6 Baso % (Auto) 0.5 Lymph # 1.3 [place] # 0.7 Eos # 0.2 Baso # 0.1 Seg Neutrophils % 78.9 H Seg Neutrophils # 8.3 H Sodium 137 Potassium 3.9 Chloride 100.9 Carbon Dioxide 25 Anion Gap 15 BUN 8 L Creatinine 0.7 L Estimated GFR > 60 BUN/Creatinine Ratio 11 Glucose 153 H Calcium 8.7 Total Bilirubin 0.50 AST 12 ALT 7 Alkaline Phosphatase 71 Total Protein 7.1 Albumin 3.5 L Albumin/Globulin Ratio 1.0 Blood Type O POSITIVE Antibody Screen Negative Crossmatch See Detail
--- NOTE | 2018-03-02 12:25 | Consultation ---
History of Present Illness Consult date: 03/02/18 Requesting physician: BETINA JOSEPH Reason for consult: abnormal CXR/CT History of present illness: 47 y/o male, occaisonal cigar smoker found to have right lower lobe mass like lesion on CT of chest. STarted having shortness of breath last week. 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 This was not consistent. When he felt this feeling again he decided to come and be evaluated. CTA was done, negative for PE but showed right lower lobe lesion and left upper lobe lesion likely old scar. patient has only lived in [place]. He does not smoke cigarettes. Second hand smoke exposure from mother. maternal grandmother of cancer. patient denies any weight loss, no hemoptysis and no chest pain. No night sweats and no fever. Thinks his boss may have had a URI. has traveled to the [facility] in [place]. No TB exposure history but has never had a test for it. Remainder is negative. Past History Past Medical History: hypertension, other (chronic low back pain) Past Surgical History: appendectomy Social history: other (he admits to occasional alcohol use but denies tobacco or illicit drug use) Family history: hypertension Medications and Allergies Allergies Allergy/AdvReac Type Severity Reaction Status Date / Time No Known Allergies Allergy Unverified 02/28/18 19:45 Home Medications Medication Instructions Recorded Confirmed Last Taken Type amLODIPine [Norvasc] 10 mg PO DAILY 02/28/18 02/28/18 Unknown History hydroCHLOROthiazide 12.5 mg PO DAILY 02/28/18 02/28/18 Unknown History [Hydrochlorothiazide] Active Meds: Active Medications Acetaminophen (Tylenol) 650 mg PO Q4H PRN PRN Reason: Pain MILD(1-3)/Fever >100.5/[place] Last Admin: 03/01/18 16:06 Dose: 650 mg Amlodipine Besylate (Norvasc) 10 mg PO DAILY [facility] Last Admin: 03/02/18 09:16 Dose: 10 mg Hydralazine HCl (Apresoline) 10 mg IV Q6H PRN PRN Reason: Blood Pressure Last Admin: 03/02/18 07:04 Dose: 10 mg Hydrochlorothiazide (Hctz) 12.5 mg PO QDAY [facility] Last Admin: 03/02/18 09:16 Dose: 12.5 mg Levofloxacin/Dextrose (Levaquin 750mg/150ml) 750 mg in 150 mls @ 100 mls/hr IV Q24HR [facility]; Protocol Last Admin: 03/02/18 09:12 Dose: 100 mls/hr Sodium Chloride (Nacl 0.9% 1000 Ml) 1,000 mls @ 100 mls/hr IV DIRECT [facility] Last Admin: 03/01/18 04:50 Dose: 100 mls/hr Morphine Sulfate (Morphine) 2 mg IV Q4H PRN PRN Reason: Pain, Moderate (4-6) Multivitamins/Minerals (Theragran-M Tab) 1 each PO QDAY [facility] Last Admin: 03/02/18 09:16 Dose: 1 each Ondansetron HCl (Zofran) 4 mg IV Q8H PRN PRN Reason: Nausea And Vomiting Pantoprazole Sodium (Protonix) 40 mg PO BID [facility] Last Admin: 03/02/18 09:16 Dose: 40 mg Sodium Chloride (Sodium Chloride Flush Syringe 10 Ml) 10 ml IV BID [facility] Last Admin: 03/02/18 09:16 Dose: 10 ml Review of Systems All systems: negative Physical Examination Vital signs: Vital Signs Temp Pulse Resp BP Pulse Ox 98.6 F 89 17 152/74 99 02/28/18 19:40 02/28/18 19:40 02/28/18 19:40 02/28/18 19:40 02/28/18 19:40 General appearance: no acute distress, alert, other (obese) Eyes: non-icteric ENT: oropharynx moist Neck: supple, other (large in circumference) Effort: normal Ascultation: Bilateral: clear Percussion: Bilateral: not dull Tactile fremitus: Bilateral: normal Cardiovascular: regular rate and rhythm Gastrointestinal: soft, non-tender Extremities: no cyanosis, no edema, pink and warm, pulses normal normal mental status, non-focal exam, motor strength normal and mood appropriate, affect normal Results - Laboratory Findings CBC and BMP: 03/02/18 06:37 03/02/18 06:37 PT/INR, D-dimer PT 15.1 Sec. (12.2-14.9) H 02/28/18 21:26 INR 1.14 (0.87-1.13) H 02/28/18 21:26 Abnormal lab findings: Abnormal Labs 02/28/18 02/28/18 02/28/18 20:10 20:10 21:26 RBC 2.56 L Hgb 5.4 L* Hct 17.5 L* MCV 68 L MCH 21 L MCHC 31 L RDW 18.7 H Plt Count 600 H Lymph % (Auto) [place] % (Auto) 8.4 H Seg Neutrophils % 75.3 H Seg Neutrophils # PT 15.1 H INR 1.14 H BUN Creatinine Glucose 150 H Hemoglobin A1c Iron Ferritin Albumin Crossmatch 02/28/18 02/28/18 03/01/18 21:26 21:33 05:51 RBC Hgb Hct MCV MCH MCHC RDW Plt Count Lymph % (Auto) [place] % (Auto) Seg Neutrophils % Seg Neutrophils # PT INR BUN Creatinine Glucose Hemoglobin A1c 7.0 H Iron 7 L Ferritin Albumin Crossmatch See Detail 03/01/18 03/01/18 03/01/18 05:51 05:51 09:30 RBC 2.93 L Hgb 6.6 L Hct 21.0 L MCV 72 L MCH 22 L MCHC 31 L RDW 21.7 H Plt Count 576 H Lymph % (Auto) 13.2 L [place] % (Auto) 7.8 H Seg Neutrophils % 76.7 H Seg Neutrophils # PT INR BUN Creatinine Glucose Hemoglobin A1c Iron 15 L Ferritin 12.5 L Albumin Crossmatch 03/02/18 03/02/18 06:37 06:37 RBC Hgb 9.1 L Hct 28.4 L D MCV 74 L MCH 24 L MCHC RDW 23.8 H Plt Count 570 H Lymph % (Auto) 11.9 L [place] % (Auto) Seg Neutrophils % 78.9 H Seg Neutrophils # 8.3 H PT INR BUN 8 L Creatinine 0.7 L Glucose 153 H Hemoglobin A1c Iron Ferritin Albumin 3.5 L Crossmatch - Diagnostic Findings CT scan - chest: image reviewed Assessment and Plan 47 y/o male with abnormal CT 1. Needs bronch and is in agreement with this. however would like to do as outpatient. Will arrange for either this Saturday or at the latest next saturday. Will need TBBx with brush and washings 2. Have patient's info and I have given him the office info but we will arrange the scope
[2018-03-02] MEDS ORDERED: D50W (25GM) Syringe IV PRN (14:02)
--- NOTE | 2018-03-02 14:04 | Progress Note ---
Assessment and Plan Assessment and plan: 47-year-old male with past medical history significant for hypertension, obesity presented to the emergency department with complaints of shortness of breath on exertion. Patient also complaining vomiting of coffee-ground material. In the ED hemoglobin was 5.4. Symptomatic anemia secondary to upper GI bleed - Transfused 2 units of blood, hemoglobin just wondering was numb 0.1 - Patient is on Protonix - GI consult appreciated - EGD was done and showed ulcerating mass, surgery and pulmonary consulted Hypertension -Controlled -We will start with antihypertensives as needed Right lower lobe infiltrate -Patient is on IV Levaquin for possible pneumonia Left lower lobe nodules - Surgery consulted -Need outpatient follow-up CT within 3 months Obesity -Patient to be counseled about weight loss, diet and exercise Hyperglycemia -Hemoglobin A1c is 7 and started with insulin DVT prophylaxis -On SCDs because of GI bleed History Interval history: Patient was seen and evaluated, shortness of breath is getting better. No nausea , vomiting. Hospitalist Physical - Physical exam Narrative exam: Not in cardiopulmonary distress. The patient is obese. Vital signs as documented. Head exam is unremarkable. No scleral icterus . Neck is without jugular venous distension, thyromegaly, or carotid bruits. Lungs are clear to auscultation. Cardiac exam reveals regular rate and Rhythm. First and second heart sounds normal. No murmurs, rubs or gallops. Abdominal exam reveals normal bowel sounds, no masses, no organomegaly and no aortic enlargement. Extremities are nonedematous and both femoral and pedal pulses are normal. SANDER HAND: Alert and oriented 3. No focal weakness. - Constitutional Vitals: Temp Pulse Resp BP Pulse Ox 98.8 F 90 18 164/83 98 03/02/18 12:23 03/02/18 12:23 03/02/18 12:23 03/02/18 12:23 03/02/18 12:23 General appearance: Present: no acute distress Results - Labs CBC & Chem 7: 03/02/18 06:37 03/02/18 06:37 Labs: Laboratory Last Values WBC 10.6 K/mm3 (4.5-11.0) 03/02/18 06:37 RBC 3.85 M/mm3 (3.65-5.03) 03/02/18 06:37 Hgb 9.1 gm/dl (11.8-15.2) L 03/02/18 06:37 Hct 28.4 % (35.5-45.6) L D 03/02/18 06:37 MCV 74 fl (84-94) L 03/02/18 06:37 MCH 24 pg (28-32) L 03/02/18 06:37 MCHC 32 % (32-34) 03/02/18 06:37 RDW 23.8 % (13.2-15.2) H 03/02/18 06:37 Plt Count 570 K/mm3 (140-440) H 03/02/18 06:37 Lymph % (Auto) 11.9 % (13.4-35.0) L 03/02/18 06:37 Roberts % (Auto) 7.1 % (0.0-7.3) 03/02/18 06:37 Eos % (Auto) 1.6 % (0.0-4.3) 03/02/18 06:37 Baso % (Auto) 0.5 % (0.0-1.8) 03/02/18 06:37 Lymph # 1.3 K/mm3 (1.2-5.4) 03/02/18 06:37 Roberts # 0.7 K/mm3 (0.0-0.8) 03/02/18 06:37 Eos # 0.2 K/mm3 (0.0-0.4) 03/02/18 06:37 Baso # 0.1 K/mm3 (0.0-0.1) 03/02/18 06:37 Seg Neutrophils % 78.9 % (40.0-70.0) H 03/02/18 06:37 Seg Neutrophils # 8.3 K/mm3 (1.8-7.7) H 03/02/18 06:37 PT 15.1 Sec. (12.2-14.9) H 02/28/18 21:26 INR 1.14 (0.87-1.13) H 02/28/18 21:26 APTT 31.3 Sec. (24.2-36.6) 02/28/18 21:26 Sodium 137 mmol/L (137-145) 03/02/18 06:37 Potassium 3.9 mmol/L (3.6-5.0) 03/02/18 06:37 Chloride 100.9 mmol/L (98-107) 03/02/18 06:37 Carbon Dioxide 25 mmol/L (22-30) 03/02/18 06:37 Anion Gap 15 mmol/L 03/02/18 06:37 BUN 8 mg/dL (9-20) L 03/02/18 06:37 Creatinine 0.7 mg/dL (0.8-1.5) L 03/02/18 06:37 Estimated GFR > 60 ml/min 03/02/18 06:37 BUN/Creatinine Ratio 11 % 03/02/18 06:37 Glucose 153 mg/dL (75-100) H 03/02/18 06:37 Hemoglobin A1c 7.0 % (4-6) H 03/01/18 05:51 Calcium 8.7 mg/dL (8.4-10.2) 03/02/18 06:37 Iron 15 ug/dL (49-181) L 03/01/18 05:51 TIBC 262 mcg/dL (250-450) 03/01/18 05:51 % Saturation 2.46 % 02/28/18 21:26 Transferrin 241 mg/dl (180-329) 02/28/18 21:26 Ferritin 12.5 ng/mL (13.0-400.0) L 03/01/18 05:51 Total Bilirubin 0.50 mg/dL (0.1-1.2) 03/02/18 06:37 AST 12 units/L (5-40) 03/02/18 06:37 ALT 7 units/L (7-56) 03/02/18 06:37 Alkaline Phosphatase 71 units/L (35-129) 03/02/18 06:37 Troponin T < 0.010 ng/mL (0.00-0.029) 02/28/18 20:10 Total Protein 7.1 g/dL (6.3-8.2) 03/02/18 06:37 Albumin 3.5 g/dL (3.9-5) L 03/02/18 06:37 Albumin/Globulin Ratio 1.0 % 03/02/18 06:37 Vitamin B12 319.2 pg/mL (211-911) 03/01/18 05:51 Folate 8.64 ng/mL (7.3-26.0) 09/15/18 05:51 Blood Type O POSITIVE 02/28/18 21:33 Antibody Screen Negative 02/28/18 21:33 Crossmatch See Detail 02/28/18 21:33
[2018-03-02] MEDS: HumaLOG SUB-Q SCH ×2 (16:30→23:33)
[2018-03-03] MEDS: APRESOLINE IV PRN (02:56)
[2018-03-03 07:09] LABS: Hematocrit 28.7 % (35.5-45.6); Hemoglobin 9.3 gm/dl (11.8-15.2)
[2018-03-03] MEDS: HumaLOG SUB-Q SCH (08:48)
[2018-03-03] MEDS: HCTZ PO SCH (09:14)
[2018-03-03] MEDS: PROTONIX PO SCH (09:14)
[2018-03-03] MEDS: NORVASC PO SCH (09:15)
[2018-03-03] MEDS: THERAGRAN-M Tab PO SCH (09:15)
[2018-03-03] MEDS: LEVAQUIN 750MG/150ML 750 MG/150 ML BAG IV SCH (09:16)
[2018-03-03] MEDS: SODIUM CHLORIDE FLUSH SYRINGE 10 ML IV SCH (09:16)
--- NOTE | 2018-03-03 11:07 | Gastroenterology Progress Note ---
Assessment and Plan 1.lesion of lung -pulmonary following with outpatient bronch recommended/scheduled 2.gastric lesion -H/H 9.3/28.7-trending up -no active signs of bleeding -s/p EGD that revealed a severe ulcer -bx results pending r/o mass lesion -follow up results in clinic -CT scan- no evidence of mets if is a gastric cancer (may be acute severe inflammatory process) -clinically, patient is stable w/o abd pain or N/V. Tolerating diet -continue PPI -avoid NSAIDs -patient okay to be d/c per GI standpoint on PPI with clinic follow up in 2 weeks (need for f/u discussed with patient-understanding voiced; office information and card given 3.iron deficency anemia -see gastric lesion -patient will need outpatient colonoscopy, but hct markedly better on MVI and PPI; doubt colonic source given gastric lesion Subjective Date of service: 03/03/18 Principal diagnosis: Gastric lesion Interval history: Patient resting in bed w/o acute distress. Reports feeling better with no active signs of bleeding overnight or this am. Denies abd pain or N/V. Tolerating diet. Objective - Constitutional Vitals: Temp Pulse Resp BP Pulse Ox 98.0 F 73 20 158/75 99 03/03/18 04:56 03/03/18 09:15 03/03/18 08:51 03/03/18 09:15 03/03/18 04:56 General appearance: no acute distress - Respiratory Respiratory: bilateral: CTA - Cardiovascular Rhythm: regular Heart Sounds: Present: S1 & S2 - Gastrointestinal General gastrointestinal: Present: soft, non-tender, non-distended, normal bowel sounds - Neurologic Neurological: alert and oriented x3 - Labs CBC & Chem 7: 03/03/18 06:14 03/02/18 06:37 Labs: Laboratory Results - last 24 hr 03/02/18 03/02/18 03/03/18 16:27 21:30 06:14 Hgb 9.3 L Hct 28.7 L POC Glucose 131 H 207 H 03/03/18 07:38 Hgb Hct POC Glucose 151 H
--- NOTE | 2018-03-03 11:58 | Discharge Summary ---
Providers - Providers Date of Admission: 02/28/18 23:59 Attending physician: VÍCTOR GAMEZ MD 02/28/18 23:09 Consult to Physician [CONS] Urgent Comment: Consulting Provider: BETINA JOSEPH Physician Instructions: Reason For Exam: epigastric pain, anemia, guaic + stool 03/01/18 11:08 Consult to Physician [CONS] Urgent Comment: Consulting Provider: LYNDSAY HEBETR Physician Instructions: Reason For Exam: gastric mass 03/02/18 10:00 Consult to Physician [CONS] Urgent Comment: Consulting Provider: GRIS TRUJILLO Physician Instructions: Reason For Exam: lung mass Primary care physician: ENRICHMENT SPECIALIST Hospitalization Reason for admission: Upper GI bleed, Anemia, Gastric ulcer,polyp Condition: Stable Disposition: [place]-01 TO HOME OR SELFCARE Time spent for discharge: 32 minutes - Discharge Diagnoses (1) Acute blood loss anemia Status: Acute (2) Epigastric abdominal pain Status: Acute (3) Gastric lesion Status: Acute (4) Guaiac positive stools Status: Acute (5) Iron deficiency anemia Status: Acute (6) Lesion of lung Status: Acute (7) Pulmonary infiltrate Status: Acute (8) Symptomatic anemia Status: Acute (9) Diabetes Status: Acute Qualifiers: Diabetes mellitus type: type 2 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 The patient is obese. Vital signs as documented. Head exam is unremarkable. No scleral icterus . Neck is without jugular venous distension, thyromegaly, or carotid bruits. Lungs are clear to auscultation. Cardiac exam reveals regular rate and Rhythm. First and second heart sounds normal. No murmurs, rubs or gallops. Abdominal exam reveals normal bowel sounds, no masses, no organomegaly and no aortic enlargement. Extremities are nonedematous and both femoral and pedal pulses are normal. 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 No focal weakness. - Constitutional Vitals: Temp Pulse Resp BP Pulse Ox 98.0 F 73 20 158/75 99 03/03/18 04:56 03/03/18 09:15 03/03/18 08:51 09/17/18 09:15 03/03/18 04:56 Plan Activity: no restrictions Weight Bearing Status: Full Weight Bearing Diet: diabetic, advance as tolerated Additional Instructions: Patient discussed with Dr Trujillo to have bronch as an O /P. F/U at [facility] in 1-2 weeks. Follow up with: PRIMARY CAREMD [Primary Care Provider] - 7 Days BETINA JOSEPH MD [Staff Physician] - 14 Days Prescriptions: Ferrous Sulfate [Feosol 325 MG tab] 325 mg PO BID #30 tablet metFORMIN [Glucophage] 500 mg PO BID #60 tablet Pantoprazole [Protonix TAB] 40 mg PO BID #30 tablet
[2018-03-03 13:17] VITALS: BP 163/88
== END 2018-03-03 16:45 | disposition home or self-care (01) | DRG 377 ==
LOC: ED 19:22 → 3A 23:59
PROVIDERS: ADMIT Internal Medicine; ATTEND Internal Medicine
PROC: 30233N1 Transfusion of Nonautologous Red Blood Cells into Peripheral Vein, Percutaneous Approach (ICD-10-PCS; 2018-02-28)
PROC: 0DB68ZX Excision of Stomach, Via Natural or Artificial Opening Endoscopic, Diagnostic (ICD-10-PCS; principal; 2018-03-01)
PROC: 0DB78ZX Excision of Stomach, Pylorus, Via Natural or Artificial Opening Endoscopic, Diagnostic (ICD-10-PCS; 2018-03-01)
DX: K25.4 Chronic or unspecified gastric ulcer with hemorrhage (principal); J18.9 Pneumonia, unspecified organism; D62 Acute posthemorrhagic anemia; D50.9 Iron deficiency anemia, unspecified; I10 Essential (primary) hypertension; E66.9 Obesity, unspecified; K31.9 Disease of stomach and duodenum, unspecified; R91.1 Solitary pulmonary nodule; E11.65 Type 2 diabetes mellitus with hyperglycemia; G89.29 Other chronic pain; F17.290 Nicotine dependence, other tobacco product, uncomplicated; M54.9 Dorsalgia, unspecified; Z90.49 Acquired absence of other specified parts of digestive tract; Z68.35 Body mass index [BMI] 35.0-35.9, adult; Z82.49 Family history of ischemic heart disease and other diseases of the circulatory system; Z79.899 Other long term (current) drug therapy; Z80.9 Family history of malignant neoplasm, unspecified
CPT/HCPCS: 36415; 71046; 71250; 71275; 74177; 80048; 80053; 82607; 82728; 82747; 82962; 83036; 83550; 84484; 85014; 85018; 85025; 85610; 85730; 86850; 86900; 86901; 86920; 87040; 88305; 88312; 88342; 93005; 93010; 96374; 96375; C9113; J0360; J0456; J0696; J1815; J1956; J2704; J7030; J7040; J7050; P9016; Q9967